=== PATIENT | female | born 1955 | race Caucasian/White ===

== ENCOUNTER 2019-12-19 19:45 | Emergency (ER) | payer MEDICARE, OTHER ==
[2019-12-19 19:51] VITALS: BP 151/75; PULSE 88; RESP 18; TEMP 98.9
[2019-12-19] MEDS ORDERED: SULFAMETHOX-TMP 800-160MG 1 EACH TAB PO STA (20:18)
[2019-12-19] MEDS ORDERED: cefTRIAXone 1,000 MG VIAL (IM USE) IM STA (20:18)
--- NOTE | 2019-12-19 20:36 | ED ---
General Adult HPI - General Chief complaint: Skin/Abscess/Foreign Body Stated complaint: Facial Swelling Time Seen by Provider: 12/19/19 19:50 Source: patient, RN notes reviewed, old records reviewed Mode of arrival: ambulatory Limitations: no limitations - History of Present Illness Initial comments: This is a 64-year-old female presents emergency Department complaining of an area of redness and tenderness on the left temporal region just lateral to the forehead. Patient states it's been there. Based and there is a slight area of fluctuance. Patient states she thinks it might be an abscess. Patient states the area of redness has gotten a little bit bigger and now she has some swelling of her lower eyelid. Patient denies any fever chills. Patient states it started as a pimple and she scratched and now it's gotten red and extremely tender to touch. Patient denies any headache patient denies any other area of redness or fluctuance. Patient denies any visual disturbance. Patient denies any ear pain. - Related Data Previous Rx's Medication Instructions Recorded Sulfamethox-Tmp 800-160Mg [Bactrim 1 each PO Q12HR #20 tab 12/19/19 DS 800-160 mg] Allergies Allergy/AdvReac Type Severity Reaction Status Date / Time No Known Allergies Allergy Verified 12/19/19 19:51 Review of Systems ROS Statement: Those systems with pertinent positive or pertinent negative responses have been documented in the HPI. ROS Other: All systems not noted in ROS Statement are negative. Past Medical History Past Medical History: Diabetes Mellitus, Hyperlipidemia History of Any Multi-Drug Resistant Organisms: None Reported Past Surgical History: Hysterectomy Additional Past Surgical History / Comment(s): cataracts, Past Psychological History: Anxiety Smoking Status: Current every day smoker Past Alcohol Use History: None Reported Past Drug Use History: None Reported General Exam - General Exam Comments Initial Comments: GENERAL Patient is well-developed and well-nourished. Patient is in mild distress. EYES Patient's pupils are equal and round. Extraocular motion is intact SKIN Patient has an area of erythema in the left anterior temporal region measuring about 2.5 center is a family is a scab at the bedside and there is some very subtly fluctuant and is very tender to palpation. Patient also has some swelling of the lower left eyelid but there is no erythema to the eyelid. NEURO The patient is alert and oriented 3 PYSCH Patient has normal interpersonal interactions. MUSCULOSKELETAL All 4 extremities have full range motion. Limitations: no limitations Course Vital Signs 12/19/19 19:47 Temperature 98.9 F Pulse Rate 88 Respiratory 18 Rate Blood Pressure 151/75 O2 Sat by Pulse 98 Oximetry Procedures - Incision & Drainage Consent Obtained: verbal consent Site: face I&D Cleaning Method: Betadine Needle Aspiration Performed?: Yes I&D Drainage Obtained: Pus Culture Obtained?: Yes Complications: pain Patient Tolerated Procedure: well Disposition Clinical Impression: Facial abscess Disposition: HOME SELF-CARE Condition: Good Instructions (If sedation given, give patient instructions): Abscess Incision and Drainage (ED) Prescriptions: Sulfamethox-Tmp 800-160Mg [Bactrim DS 800-160 mg] 1 each PO Q12HR #20 tab Is patient prescribed a controlled substance at d/c from ED?: No Referrals: Ally Licona MD [Primary Care Provider] - 12/20/19 Time of Disposition: 20:44
== END 2019-12-19 20:54 | disposition home or self-care (01) ==
LOC: EC 19:45
DX: L02.01 Cutaneous abscess of face (principal); H02.845 Edema of left lower eyelid; F17.200 Nicotine dependence, unspecified, uncomplicated
CPT/HCPCS: 87070; 87205; 87077; 87186; 99284; 10160; 96372; J0696

== ENCOUNTER 2019-12-21 10:13 | Inpatient (IN) | payer MEDICARE ==
[2019-12-21] MEDS ORDERED: VANCOMYCIN IV PER PHARMACY 1 EACH MISC MISCELLANE PRN (10:42)
--- NOTE | 2019-12-21 10:48 | ED ---
Eye Problem HPI <Doug Nava - Last Filed: 12/21/19 13:51> - General Source: patient, RN notes reviewed, old records reviewed Mode of arrival: ambulatory Limitations: no limitations <Moira Miles - Last Filed: 12/21/19 14:07> - General Chief complaint: Eye Problems Stated complaint: facial swelling Time Seen by Provider: 12/21/19 10:34 - History of Present Illness Initial comments: Patient is a 64-year-old female who presents emergency department today with worsening swelling over the right side her face extending into the left. Patient reports that she was diagnosed with facial cellulitis related to a hairline abscess. Patient presents today with her left eye completely swollen shut. Patient's previous wound culture from the abscess when she was seen 2 days ago was positive for presumptive MRSA. Patient was taking Bactrim and has had a total of 2 doses. Patient is diabetic. (Moira Miles) - Related Data Home Medications Medication Instructions Recorded Confirmed Aspirin EC [Ecotrin] 325 mg PO DAILY 12/21/19 12/21/19 Atorvastatin [Lipitor] 40 mg PO HS 12/21/19 12/21/19 Cetirizine HCl [Zyrtec] 10 mg PO DAILY 12/21/19 12/21/19 Citalopram Hydrobromide [CeleXA] 20 mg PO DAILY 12/21/19 12/21/19 Gabapentin [Neurontin] 300 mg PO BID 12/21/19 12/21/19 INSULIN ASPART (NovoLOG) [NovoLOG See Protocol SQ AC-TID 12/21/19 12/21/19 (formulary)] Insulin Glargine [Lantus] See Protocol SQ HS 12/21/19 12/21/19 Insulin Glargine,Hum.rec.anlog 30 units SQ HS 12/21/19 12/21/19 [Rosalina Tarango] Multivitamins, Thera [Multivitamin 1 tab PO DAILY 12/21/19 12/21/19 (formulary)] Naproxen [Naprosyn] 250 mg PO BID 12/21/19 12/21/19 Omeprazole [PriLOSEC] 40 mg PO DAILY 12/21/19 12/21/19 Sulfamethox-Tmp 800-160Mg [Bactrim 1 tab PO Q12HR 12/21/19 12/21/19 DS 800-160 mg] sitaGLIPtin PHOS/metFORMIN HCL 1 tab PO BID 12/21/19 12/21/19 [Janumet 50-1,000 mg Tablet] Allergies Allergy/AdvReac Type Severity Reaction Status Date / Time No Known Allergies Allergy Verified 12/21/19 10:22 Review of Systems ROS Other: All systems not noted in ROS Statement are negative. <Doug Nava - Last Filed: 12/21/19 13:51> ROS Other: All systems not noted in ROS Statement are negative. <Moira Miles - Last Filed: 12/21/19 14:07> ROS Statement: Those systems with pertinent positive or pertinent negative responses have been documented in the HPI. Past Medical History Past Medical History: Diabetes Mellitus, Hyperlipidemia History of Any Multi-Drug Resistant Organisms: MRSA Date of last positivie culture/infection: 12/19/19 MDRO Source:: FACE Past Surgical History: Hysterectomy Additional Past Surgical History / Comment(s): cataracts, Past Psychological History: Anxiety Smoking Status: Current every day smoker Past Alcohol Use History: None Reported Past Drug Use History: None Reported <Moira Miles - Last Filed: 12/21/19 14:07> General Exam Limitations: no limitations General appearance: alert, in no apparent distress Head exam: Present: atraumatic, normocephalic, normal inspection, other (Patient has a abscess over the left hairline. ) Eye exam: Present: PERRL, EOMI. Absent: normal appearance (patient left eye is swollen shut, erythematous and swollen eyelid. Patient eye has no erythema nad denies eye pain with EOM. ), scleral icterus, conjunctival injection, periorbital swelling ENT exam: Present: normal exam, normal oropharynx, mucous membranes moist Neck exam: Present: normal inspection. Absent: tenderness, meningismus, lymphadenopathy Respiratory exam: Present: normal lung sounds bilaterally. Absent: respiratory distress, wheezes, rales, rhonchi, stridor Cardiovascular Exam: Present: regular rate, normal rhythm, normal heart sounds. Absent: systolic murmur, diastolic murmur, rubs, gallop, clicks GI/Abdominal exam: Present: soft, normal bowel sounds. Absent: distended, tenderness, guarding, rebound, rigid Extremities exam: Present: normal inspection, full ROM, normal capillary refill. Absent: tenderness, pedal edema, joint swelling, calf tenderness Back exam: Present: normal inspection Neurological exam: Present: alert, oriented X3, CN II-XII intact Psychiatric exam: Present: normal affect, normal mood Skin exam: Present: warm, dry, intact, normal color. Absent: rash <Moira Miles - Last Filed: 12/21/19 14:07> - General Exam Comments Initial Comments: This is a 64 rolled female. Alert and oriented 3. Patient appears in no significant distress. (Moira Miles) Course Vital Signs 12/21/19 12/21/19 10:20 12:55 Temperature 98.2 F 99.2 F Pulse Rate 90 90 Respiratory 16 17 Rate Blood Pressure 126/73 124/72 O2 Sat by Pulse 96 97 Oximetry Medical Decision Making - Lab Data Result diagrams: 12/21/19 11:00 12/21/19 11:00 <Doug aNva - Last Filed: 12/21/19 13:51> - Lab Data Result diagrams: 12/21/19 11:00 12/21/19 11:00 - Radiology Data Radiology results: report reviewed <Moira Miles - Last Filed: 12/21/19 14:07> - Medical Decision Making 64-year-old female with left facial and periorbital cellulitis. No signs of an orbital cellulitis. Patient is afebrile and nontoxic appearing. She's been on 3 days of Bactrim without improvement, significant worsening has occurred over this course. She will be admitted for IV antibiotics. I did discuss case with Dr. Pierre who will admit. (Doug Nava) Patient is a 64-year-old female with left facial periorbital cellulitis. She's been on antibiotics, bactrim. She presents today with complete swelling of the left eye. She is a diabetic. CT shows no evidence of focal collection. Laboratory was reviewed and unremarkable. Her previous culture of an abscess over her hairline showed evidence of presumptive MRSA. Patient was started on Rocephin and vancomycin. Patient will be admitted at this time for IV antibiotics. I discussed the case with Dr. Multani. (Moira Miles) - Lab Data Lab Results 12/21/19 12/21/19 12/21/19 Range/Units 11:00 11:00 11:00 WBC 9.6 (3.8-10.6) k/uL RBC 4.25 (3.80-5.40) m/uL Hgb 12.1 (11.4-16.0) gm/dL Hct 36.2 (34.0-46.0) % MCV 85.2 (80.0-100.0) fL MCH 28.4 (25.0-35.0) pg MCHC 33.3 (31.0-37.0) g/dL RDW 12.6 (11.5-15.5) % Plt Count 227 (150-450) k/uL Neutrophils % 86 % Lymphocytes % 5 % Monocytes % 6 % Eosinophils % 1 % Basophils % 0 % Neutrophils # 8.3 H (1.3-7.7) k/uL Lymphocytes # 0.5 L (1.0-4.8) k/uL Monocytes # 0.6 (0-1.0) k/uL Eosinophils # 0.1 (0-0.7) k/uL Basophils # 0.0 (0-0.2) k/uL Sodium 133 L (137-145) mmol/L Potassium 4.6 (3.5-5.1) mmol/L Chloride 100 (98-107) mmol/L Carbon Dioxide 22 (22-30) mmol/L Anion Gap 11 mmol/L BUN 23 H (7-17) mg/dL Creatinine 1.04 (0.52-1.04) mg/dL Est GFR (CKD-EPI)AfAm 65 (>60 ml/min/1.73 sqM) Est GFR (CKD-EPI)NonAf 56 (>60 ml/min/1.73 sqM) Glucose 355 H (74-99) mg/dL Plasma Lactic Acid [place] 1.3 (0.7-2.0) mmol/L Calcium 8.9 (8.4-10.2) mg/dL Total Bilirubin 0.4 (0.2-1.3) mg/dL AST 27 (14-36) U/L ALT 19 (4-34) U/L Alkaline Phosphatase 82 (38-126) U/L Total Protein 6.7 (6.3-8.2) g/dL Albumin 3.8 (3.5-5.0) g/dL - Radiology Data CT shows preseptal left periorbital fat stranding parietal cellulitis. No focal abscess is seen. No extension to the post-septal intraconal or extraconal fat. Globes are symmetric. Straight he extends over the left temporal and parietal scalp soft tissues medially over the nasal bridge. (Moira Miles) Disposition <Doug Nava - Last Filed: 12/21/19 13:51> Is patient prescribed a controlled substance at d/c from ED?: No Time of Disposition: 14:07 <Moira Miles - Last Filed: 12/21/19 14:07> Clinical Impression: Failure of outpatient treatment, Periorbital cellulitis of left eye Disposition: HOME SELF-CARE Condition: Good Referrals: Ally Licona MD [Primary Care Provider] - 1-2 days
[2019-12-21] MEDS ORDERED: VANCOMYCIN 1,500 MG in SODIUM CHLORIDE 0.9% 250 ML IVPB ONE (11:00)
[2019-12-21 12:00] LABS: Basophils % (A) 0 %; Eosinophils # (A) 0.1 k/uL (0-0.7); Eosinophils % (A) 1 %; HCT 36.2 % (34.0-46.0); HGB 12.1 gm/dL (11.4-16.0); Lymphocytes # (A) 0.5 k/uL (1.0-4.8); Lymphocytes % (A) 5 %; MCH 28.4 pg (25.0-35.0); MCHC 33.3 g/dL (31.0-37.0); MCV 85.2 fL (80.0-100.0); Monocytes # (A) 0.6 k/uL (0-1.0); Monocytes % (A) 6 %; Neutrophils # (A) 8.3 k/uL (1.3-7.7); Neutrophils % (A) 86 %; Platelet Count 227 k/uL (150-450); RBC 4.25 m/uL (3.80-5.40); RDW 12.6 % (11.5-15.5); WBC 9.6 k/uL (3.8-10.6)
[2019-12-21] MEDS ORDERED: KETOROLAC 30 MG/ML 1 ML VIAL IVP STA (12:01)
[2019-12-21] MEDS ORDERED: methylPREDNISolone SOD SUCCI 125 MG/2 ML VIAL IV STA (12:01)
[2019-12-21 12:09] LABS: Albumin 3.8 g/dL (3.5-5.0); Calcium 8.9 mg/dL (8.4-10.2); Potassium 4.6 mmol/L (3.5-5.1); Total Bilirubin 0.4 mg/dL (0.2-1.3); Total Protein 6.7 g/dL (6.3-8.2)
--- NOTE | 2019-12-21 13:22 | CT ---
EXAMINATION TYPE: CT facial bones w con DATE OF EXAM: 12/21/2019 COMPARISON: None HISTORY: Left sided orbital and facial swelling x [address] DLP: 599.7 mGycm Automated exposure control for dose reduction was used. CONTRAST: CT scan of the facial bones is performed with IV Contrast, patient injected with 80 mL of Isovue 300. TECHNIQUE: CT scan of the sinuses is performed without contrast, axial images are obtained, coronal r eformatted images are also reviewed. FINDINGS: There is preseptal periorbital fat stranding on the left extending over the temporal bone a nd parietal bone soft tissues. This also extends medially along the medial canthus and medial nasal b ridge. The extraocular muscles are symmetric. No intraconal or extraconal fluid collection. No rim-en hancing measurable abscess seen. The globes are symmetric. Lenses atrophy is seen bilaterally. Superi or ophthalmic veins are symmetric and unremarkable. Evaluation of the brain is suboptimal given techn ique. Mild mucosal thickening of the left maxillary sinus incidental mucosal thickening in the ethmoi d sinuses. Remaining paranasal sinuses and mastoid air cells are well aerated. Facial bones appear in tact. . IMPRESSION: Preseptal left periorbital fat stranding compatible with cellulitis. No focal abscess is seen. No extent into the post septal intraconal or extraconal fat. Globes are symmetric. Fat strandin g extends over the left temporal and parietal scalp soft tissues and medially over the nasal bridge.
[2019-12-21] MEDS ORDERED: MORPHINE SULFATE 4 MG/ML SYRINGE IV PRN (14:08)
[2019-12-21] MEDS ORDERED: KETOROLAC 30 MG/ML 1 ML VIAL IVP PRN (14:08)
[2019-12-21] MEDS ORDERED: ONDANSETRON 4 MG/2 ML VIAL IVP PRN (14:08)
[2019-12-21] MEDS ORDERED: NALOXONE 0.4 MG/ML 1 ML VIAL IV PRN (14:08)
[2019-12-21] MEDS: SODIUM CHLORIDE 0.9% 1,000 ML IV SCH (15:42)
[2019-12-21 17:22] LABS: Glucose,Whole Blood 529 mg/dL (75-99)
[2019-12-21] MEDS ORDERED: INSULIN REGULAR BOLUS (FROM DRIP BAG) IV ONE (17:26)
[2019-12-21] MEDS ORDERED: INSULIN ASPART (NovoLOG) 100 UNIT/ML VIAL SQ SCH ×3 (17:30)
[2019-12-21 18:08] LABS: Glucose,Whole Blood 540 mg/dL (75-99)
[2019-12-21] MEDS: INSULIN REGULAR 100 UNIT in SODIUM CHLORIDE 0.9% 100 ML IV SCH ×2 (18:09→20:55)
[2019-12-21 18:48] LABS: Glucose,Whole Blood 580 mg/dL (75-99)
[2019-12-21 19:32] LABS: Glucose,Whole Blood 477 mg/dL (75-99)
[2019-12-21] MEDS ORDERED: HYDROcodone/APAP 5-325MG 1 EACH TAB PO PRN (19:33)
[2019-12-21] MEDS ORDERED: ALPRAZolam 0.25 MG TAB PO PRN (19:33)
[2019-12-21 20:03] LABS: Glucose,Whole Blood 434 mg/dL (75-99)
[2019-12-21 20:09] LABS: Glucose,Whole Blood 406 mg/dL (75-99)
[2019-12-21 20:37] LABS: Glucose,Whole Blood 440 mg/dL (75-99)
[2019-12-21] MEDS ORDERED: INSULIN DETEMIR (LEVEMIR) 100 UNIT/ML SYR SQ SCH (21:00)
[2019-12-21] MEDS ORDERED: NON FORMULARY DRUG (Sitagliptin Phos/Metformin Hcl [Janumet 50-1,000 Mg Tablet] 1 TAB) PO SCH (21:00)
[2019-12-21 21:13] LABS: Glucose,Whole Blood 384 mg/dL (75-99)
--- NOTE | 2019-12-21 21:35 | HP ---
HISTORY AND PHYSICAL DATE OF SERVICE: 12/21/2019 CHIEF COMPLAINTS: Left eye swelling and left forehead infection. HISTORY OF PRESENT ILLNESS: This 64-year-old woman with a past medical history of multiple medical problems including history of diabetes type 2, hypertension, hyperlipidemia, history of MRSA, anxiety, being followed by Dr. Licona in the outpatient setting was noted to have infection in the left forehead area. The patient had cellulitis. The patient also has apparently some hairline abscess. The patient has taken some antibiotics. Two days ago the patient had possible presumptive MRSA. The patient came to [facility] and was admitted for further evaluation and treatment. The culture taken on 12/19/2019 is reported as now confirmed MRSA. There is no history of fever, rigors or chills. No history of headache, loss of consciousness or seizures. Today, the patient's left face is also swollen with significant periorbital swelling on the left side with the patient could not open the eyelids by herself. There is no history of fever, rigors. No history of headache, loss of consciousness, seizures. No visual difficulties. After admission the blood sugars also found to be high. PAST MEDICAL HISTORY: History of MRSA of the left side of the neck with incision and drainage, diabetes type 2, hyperlipidemia, history of hysterectomy, history of anxiety. MEDICATIONS: Prior to admission: Home medications are: 1. Bactrim DS 1 p.o. b.i.d. 2. Janumet 1 p.o. b.i.d. 3. Naprosyn 250 mg p.o. b.i.d. 4. Toujeo 30 subcu q.h.s. 5. Celexa 20 mg p.o. daily. 6. Lipitor 40 mg q.h.s. 7. Prilosec 40 mg p.o. daily. 8. Multivitamins 1 p.o. daily. 9. Neurontin 300 mg p.o. b.i.d. 10.Zyrtec 10 mg p.o. daily. 11.Ecotrin 320 mg p.o. daily. 12.Lantus subcu q.h.s. 13.NovoLog a.c. t.i.d. ALLERGIES: None. FAMILY HISTORY: History of COPD, heart issues in the family. SOCIAL HISTORY: History of smoking continued ongoing. REVIEW OF SYSTEMS: ENT mentioned earlier Cardiovascular system: No angina. Respiratory: As mentioned earlier. GASTROINTESTINAL: As mentioned earlier. no dysuria or hematuria. Nervous System: No numbness or weakness. ALLERGY/IMMUNOLOGY: No asthma or hayfever. MUSCULOSKELETAL as mentioned earlier. HEMATOLOGY/ONCOLOGY: As mentioned earlier. CONSTITUTIONAL: As mentioned earlier. DERMATOLOGY: Negative. RHEUMATOLOGY: Negative. PSYCHIATRY: As mentioned earlier. PHYSICAL EXAMINATION: Alert and oriented times three. Pulse is 88. Blood pressure 131/60, respiration 18, temperature 97.4, pulse ox 94% on room air. HEENT: Conjunctivae normal. Oral mucosa moist. NECK is no jugular venous distention. No carotid bruit. No lymph node enlargement. Cardiovascular system: S1, S2 muffled. Respiration: Breath sounds diminished in the bases. No rhonchi. No crackles. ABDOMEN: Soft, nontender. No mass palpable. LEGS: No edema. No swelling. CENTRAL NERVOUS SYSTEM: Higher functions as mentioned earlier. Moves all four extremities. LYMPHATICS: No lymph nodes palpable in the neck, axillae or groin. SKIN: As mentioned earlier. JOINTS: No active deforming arthropathy. Examination of the face: Significant ulceration and scabbing of the left temporal area present with some contiguous redness, erythema, and as well as facial swelling of the left side of the face. Minimal facial periorbital swelling on the right eye also present. Left eye vision is normal after opening the eyelids. LABORATORY DATA: WBC 9.2, hemoglobin 12.1, sodium 133. Cultures noted. Sugars noted. Sugars are 355, 529, 514, 580. ASSESSMENT: 1. Acute right temporal cellulitis with facial cellulitis with significant periorbital swelling with MRSA. 2. Diabetes mellitus type 2, uncontrolled with no evidence of ketosis. 3. Hyponatremia. 4. Previous history of MRSA infection of the left neck. 5. Diabetes mellitus type 2. 6. Hyperlipidemia. 7. History of MRSA. 8. History of hysterectomy. 9. History of cataracts. 10.History of anxiety. 11.History of continued ongoing nicotine dependence. RECOMMENDATIONS AND DISCUSSION: This 64-year-old woman who presented with multiple complex medical issues, we will monitor the patient closely, continue the current medications, management and symptomatic treatment. We will initiate vancomycin and Zosyn. Infectious disease evaluation. Otherwise, insulin drip for blood sugars. Resume home medications. DVT prophylaxis. Prognosis guarded. Further recommendations to follow. A copy of this dictation being forwarded to Dr. Licona who is the primary physician. See orders for details. We will check hemoglobin A1c as well. MMODL / IJN: [id number] /
[2019-12-21 21:37] LABS: Glucose,Whole Blood 337 mg/dL (75-99)
[2019-12-21] MEDS: GABAPENTIN 300 MG CAP PO SCH (21:57)
[2019-12-21] MEDS: NICOTINE 14MG/24HR PATCH TRANSDERM SCH (21:58)
[2019-12-21] MEDS: metFORMIN 500 MG TAB PO SCH (21:58)
[2019-12-21] MEDS: HEPARIN SODIUM,PORCINE 5,000 UNIT/ML 1 ML VIAL SQ SCH (21:58)
[2019-12-21] MEDS: IBUPROFEN 400 MG TAB PO PRN (21:58)
[2019-12-21] MEDS: ATORVASTATIN 40 MG TAB PO SCH (21:58)
[2019-12-21 22:18] LABS: Glucose,Whole Blood 304 mg/dL (75-99)
[2019-12-21 23:01] LABS: Glucose,Whole Blood 265 mg/dL (75-99)
[2019-12-21 23:35] LABS: Glucose,Whole Blood 250 mg/dL (75-99)
[2019-12-22 00:07] LABS: Glucose,Whole Blood 230 mg/dL (75-99)
[2019-12-22] MEDS: TEMAZEPAM 15 MG CAP PO PRN ×2 (00:17→21:54)
[2019-12-22 01:24] LABS: Hemoglobin A1C 11.5 % (4.0-6.0)
[2019-12-22] MEDS: VANCOMYCIN 1,250 MG in SODIUM CHLORIDE 0.9% 250 ML IVPB SCH ×2 (02:16→17:13)
[2019-12-22 02:20] LABS: Glucose,Whole Blood 173 mg/dL (75-99)
[2019-12-22] MEDS: SODIUM CHLORIDE 0.9% 1,000 ML IV SCH ×3 (02:22→21:41)
[2019-12-22 04:22] LABS: Glucose,Whole Blood 198 mg/dL (75-99)
[2019-12-22] MEDS: INSULIN REGULAR 100 UNIT in SODIUM CHLORIDE 0.9% 100 ML IV SCH ×2 (04:24→21:53)
[2019-12-22 06:08] LABS: Glucose,Whole Blood 230 mg/dL (75-99)
[2019-12-22 07:19] LABS: Basophils % (A) 0 %; Eosinophils % (A) 0 %; HCT 31.3 % (34.0-46.0); HGB 10.7 gm/dL (11.4-16.0); Lymphocytes # (A) 0.7 k/uL (1.0-4.8); Lymphocytes % (A) 6 %; MCH 29.2 pg (25.0-35.0); MCHC 34.1 g/dL (31.0-37.0); MCV 85.6 fL (80.0-100.0); Monocytes # (A) 0.5 k/uL (0-1.0); Monocytes % (A) 5 %; Neutrophils # (A) 8.9 k/uL (1.3-7.7); Neutrophils % (A) 87 %; Platelet Count 256 k/uL (150-450); RBC 3.66 m/uL (3.80-5.40); RDW 12.6 % (11.5-15.5); WBC 10.2 k/uL (3.8-10.6)
[2019-12-22 07:41] LABS: Calcium 8.5 mg/dL (8.4-10.2); Potassium 4.8 mmol/L (3.5-5.1)
[2019-12-22 08:05] LABS: Glucose,Whole Blood 285 mg/dL (75-99)
[2019-12-22] MEDS: NICOTINE 14MG/24HR PATCH TRANSDERM SCH (08:10)
--- NOTE | 2019-12-22 08:43 | P.CONS ---
History of Present Illness - Reason for Consult Consult date: 12/21/19 LEFT PERIORBITAL CELLULITIS Requesting physician: Teddy Corado - Chief Complaint left periorbital area pain and swelling x 2 days - History of Present Illness Patient is a 64-year-old female presenting to the ER at [facility] with a chief complaints of left temporal and periorbital swelling and redness that has been going on for the last few days apparently started as a folliculitis at the left temporal area that has slowly progressed to involve the left periorbital area patient be diagnosed with cellulitis and has been treated with oral Bactrim DS with the patient has taken 2 doses however the patient did have swelling and redness to the point that the left eye is swollen shut the patient denies having any pain on movement of the eyeball patient describing the pain to the left side of the face area to be throbbing intensity about 5-10 and no radiation there is no purulent drainage did have some chills denies high- grade fever though on arrival to the ER patient has been afebrile white count was normal patient did have a CT of the face which did show preseptal left periorbital fat stranding compatible cellulitis no abscess is seen patient was started on vancomycin admitted to hospital infectious was consulted for further recommendation regarding antibiotic therapy. Review of Systems Positive point has been mentioned in HPI rest of the systems are negative Past Medical History Past Medical History: Diabetes Mellitus, Hyperlipidemia History of Any Multi-Drug Resistant Organisms: MRSA Year Discovered:: 12/19/19 MDRO Source:: FACE Past Surgical History: Hysterectomy Additional Past Surgical History / Comment(s): cataracts, Past Psychological History: Anxiety Smoking Status: Current every day smoker Past Alcohol Use History: None Reported Past Drug Use History: None Reported - Past Family History Father Family Medical History: COPD Mother Additional Family Medical History / Comment(s): Heart issues Medications and Allergies Home Medications Medication Instructions Recorded Confirmed Type Aspirin EC [Ecotrin] 325 mg PO DAILY 12/21/19 12/21/19 History Atorvastatin [Lipitor] 40 mg PO HS 12/21/19 12/21/19 History Cetirizine HCl [Zyrtec] 10 mg PO DAILY 12/21/19 12/21/19 History Citalopram Hydrobromide [CeleXA] 20 mg PO DAILY 12/21/19 12/21/19 History Gabapentin [Neurontin] 300 mg PO BID 12/21/19 12/21/19 History INSULIN ASPART (NovoLOG) [NovoLOG See Protocol SQ AC-TID 12/21/19 12/21/19 History (formulary)] Insulin Glargine [Lantus] See Protocol SQ HS 12/21/19 12/21/19 History Insulin Glargine,Hum.rec.anlog 30 units SQ HS 12/21/19 12/21/19 History [Toujeo Solostar] Multivitamins, Thera [Multivitamin 1 tab PO DAILY 12/21/19 12/21/19 History (formulary)] Naproxen [Naprosyn] 250 mg PO BID 12/21/19 12/21/19 History Omeprazole [PriLOSEC] 40 mg PO DAILY 12/21/19 12/21/19 History Sulfamethox-Tmp 800-160Mg [Bactrim 1 tab PO Q12HR 12/21/19 12/21/19 History DS 800-160 mg] sitaGLIPtin PHOS/metFORMIN HCL 1 tab PO BID 12/21/19 12/21/19 History [Janumet 50-1,000 mg Tablet] Allergies Allergy/AdvReac Type Severity Reaction Status Date / Time No Known Allergies Allergy Verified 12/21/19 10:22 Physical Exam Vitals: Vital Signs Temp Pulse Resp BP Pulse Ox 12/21/19 16:26 91 18 126/78 98 12/21/19 12:55 99.2 F 90 17 124/72 97 12/21/19 10:20 98.2 F 90 16 126/73 96 Intake and Output 12/21/19 12/21/19 12/21/19 06:59 14:59 22:59 Other: Weight 71.668 kg GENERAL DESCRIPTION: Elderly female lying in bed, no distress. No tachypnea or accessory muscle of respiration use. HEENT: Shows Pallor , no scleral icterus. Oral mucous membrane is dry. NECK: Trachea central, no thyromegaly. LUNGS: Unlabored breathing. Clear to auscultation anteriorly. No wheeze or crackle. HEART: S1, S2, regular rate and rhythm. ABDOMEN: Soft, no tenderness , guarding or rigidity EXTREMITIES: No edema of feet. SKIN: No rash, no masses palpable. Left periorbital swelling with evidence of folliculitis at the left temporal area that is streaking down to the left periorbital area there is no fluctuation or any drainage NEUROLOGICAL: The patient is awake, alert, oriented x3, mood and affect normal. Results CBC & Chem 7: 12/22/19 06:56 12/22/19 06:56 Labs: Abnormal Lab Results - Last 24 Hours (Table) 12/21/19 12/21/19 Range/Units 11:00 11:00 Neutrophils # 8.3 H (1.3-7.7) k/uL Lymphocytes # 0.5 L (1.0-4.8) k/uL Sodium 133 L (137-145) mmol/L BUN 23 H (7-17) mg/dL Glucose 355 H (74-99) mg/dL Assessment and Plan Assessment: patient with a left periorbital cellulitis that started as a folliculitis at the temporal area in this patient who did have a previous history of MRSA infection will need to cover for MRSA to the likely pathogen for this periorbital cellulitis clinically no features suggestive of orbital cellulitis and there is no evidence of any drainable abscess on the CT (1) Facial abscess Current Visit: Yes Status: Acute Code(s): L02.01 - CUTANEOUS ABSCESS OF FACE SNOMED Code(s): 522005818 (2) Periorbital cellulitis of left eye Current Visit: Yes Status: Acute Code(s): L03.213 - PERIORBITAL CELLULITIS SNOMED Code(s): 101482982 Plan: 1-vancomycin pharmacy to dose her with a target trough of 15 while watching her kidney function and Vanco trough closely. 2-jemma the area of the redness 3-cultures to be obtained if the area started to drain We will follow on clinical condition and cultures to further adjust medication if needed Thank you for this consultation we will follow the patient along with you Time with Patient: Greater than 30
[2019-12-22] MEDS: metFORMIN 500 MG TAB PO SCH ×2 (08:54→20:02)
[2019-12-22] MEDS: HEPARIN SODIUM,PORCINE 5,000 UNIT/ML 1 ML VIAL SQ SCH ×2 (08:54→20:02)
[2019-12-22] MEDS: LORATADINE 10 MG TAB PO SCH (08:54)
[2019-12-22] MEDS: PANTOPRAZOLE 40 MG/10 ML VIAL IV SCH (08:54)
[2019-12-22] MEDS: GABAPENTIN 300 MG CAP PO SCH ×2 (08:54→20:02)
[2019-12-22] MEDS: CITALOPRAM HYDROBROMIDE 20 MG TAB PO SCH (08:54)
[2019-12-22] MEDS: ASPIRIN 325 MG TAB PO SCH (08:55)
[2019-12-22] MEDS: MULTIVITAMINS, THERA 1 EACH TAB PO SCH (08:55)
[2019-12-22] MEDS ORDERED: NON FORMULARY DRUG (Omeprazole 40 MG) PO SCH (09:00)
[2019-12-22] MEDS ORDERED: LINAGLIPTIN 5 MG TABLET PO SCH (09:00)
[2019-12-22 10:03] LABS: Glucose,Whole Blood 350 mg/dL (75-99)
[2019-12-22 11:59] LABS: Glucose,Whole Blood 184 mg/dL (75-99)
[2019-12-22 12:46] VITALS: BMI 30.8
[2019-12-22 14:15] LABS: Glucose,Whole Blood 159 mg/dL (75-99)
[2019-12-22] MEDS: ACETAMINOPHEN TAB 325 MG TAB PO PRN (14:32)
[2019-12-22 15:40] LABS: Appearance,Urine Clear (Clear); Bilirubin,Urine Negative (Negative); Blood,Urine Negative (Negative); Color,Urine Yellow; Glucose,Urine (UA) 4+ (Negative); Ketones,Urine Negative (Negative); Leukocyte Esterase,Urine Negative (Negative); Nitrite,Urine Negative (Negative); PH, Urine 5.5 (5.0-8.0); Protein,Urine Negative (Negative); Specific Gravity,Urine 1.021 (1.001-1.035); Urobilinogen,Urine <2.0 mg/dL (<2.0)
[2019-12-22 16:03] LABS: Glucose,Whole Blood 191 mg/dL (75-99)
[2019-12-22 18:05] LABS: Glucose,Whole Blood 249 mg/dL (75-99)
[2019-12-22 19:57] LABS: Glucose,Whole Blood 259 mg/dL (75-99)
[2019-12-22] MEDS: ATORVASTATIN 40 MG TAB PO SCH (20:02)
--- NOTE | 2019-12-22 20:04 | PN ---
PROGRESS NOTE DATE OF SERVICE: 12/22/2019 This 64-year-old woman was admitted with acute left temporal cellulitis and possible abscess with MRSA, bilateral, left more than the right. The patient is on IV vancomycin. Infectious Disease is following the patient closely. Cultures are negative so far. PHYSICAL EXAMINATION: Alert and oriented x3. The pulse is 66, blood pressure 124/60, respiration 18, temperature 99 degrees, pulse ox 94% on room air. HEENT: Conjunctivae normal. Periorbital puffiness, left more than the right. Left temporal cellulitis and induration present. NECK: No jugular venous distention. No lymph node enlargement. CARDIOVASCULAR: S1, S2. RESPIRATORY: Diminished breath sounds at the bases. Bilateral scattered rhonchi and crackles. ABDOMEN: Soft, nontender. LEGS: No edema, no swelling. NERVOUS SYSTEM: No focal deficits. LABS: WBC 10.2. Sodium 134. Accu-Cheks is 191. ASSESSMENT: 1. Acute right temporal cellulitis with facial cellulitis, significant periorbital swelling with possible MRSA. 2. Diabetes type 2, uncontrolled with no evidence of ketosis. 3. Hyponatremia. 4. Previous history of MRSA infection of the left neck. 5. Hyperlipidemia. 6. History of MRSA. 7. History of hysterectomy. 8. History of cataracts. 9. History of anxiety. 10.History of remote nicotine dependence. RECOMMENDATIONS AND DISCUSSION: Recommend to continue current management, continue symptomatic treatment. Otherwise, at this time I recommend taper off the insulin drip at this time. Otherwise, continue to monitor. Guarded prognosis because of multiple complex medical issues and further recommendations to follow. See orders for details. MMODL / IJN: [id number] /
[2019-12-22 21:53] LABS: Glucose,Whole Blood 213 mg/dL (75-99)
[2019-12-22] MEDS: IBUPROFEN 400 MG TAB PO PRN (21:54)
[2019-12-22 23:59] LABS: Glucose,Whole Blood 168 mg/dL (75-99)
[2019-12-23 03:23] LABS: Glucose,Whole Blood 206 mg/dL (75-99)
[2019-12-23] MEDS: SODIUM CHLORIDE 0.9% 1,000 ML IV SCH ×2 (04:58→17:31)
[2019-12-23 05:00] LABS: Glucose,Whole Blood 215 mg/dL (75-99)
[2019-12-23 07:07] LABS: Glucose,Whole Blood 231 mg/dL (75-99)
[2019-12-23 07:13] LABS: Basophils % (A) 0 %; Eosinophils # (A) 0.1 k/uL (0-0.7); Eosinophils % (A) 1 %; HCT 31.7 % (34.0-46.0); HGB 10.5 gm/dL (11.4-16.0); Lymphocytes # (A) 1.8 k/uL (1.0-4.8); Lymphocytes % (A) 26 %; MCH 29.1 pg (25.0-35.0); MCHC 33.2 g/dL (31.0-37.0); MCV 87.5 fL (80.0-100.0); Monocytes # (A) 0.4 k/uL (0-1.0); Monocytes % (A) 6 %; Neutrophils # (A) 4.4 k/uL (1.3-7.7); Neutrophils % (A) 64 %; Platelet Count 258 k/uL (150-450); RBC 3.63 m/uL (3.80-5.40); RDW 12.9 % (11.5-15.5)
[2019-12-23 07:34] LABS: Calcium 8.2 mg/dL (8.4-10.2); Potassium 4.7 mmol/L (3.5-5.1)
[2019-12-23] MEDS: GABAPENTIN 300 MG CAP PO SCH ×2 (07:44→20:33)
[2019-12-23] MEDS: CITALOPRAM HYDROBROMIDE 20 MG TAB PO SCH (07:44)
[2019-12-23] MEDS: metFORMIN 500 MG TAB PO SCH ×2 (07:44→20:33)
[2019-12-23] MEDS: LORATADINE 10 MG TAB PO SCH (07:44)
[2019-12-23] MEDS: MULTIVITAMINS, THERA 1 EACH TAB PO SCH (07:44)
[2019-12-23] MEDS: PANTOPRAZOLE 40 MG/10 ML VIAL IV SCH (07:45)
[2019-12-23] MEDS: NICOTINE 14MG/24HR PATCH TRANSDERM SCH (07:45)
[2019-12-23] MEDS: ASPIRIN 325 MG TAB PO SCH (07:45)
[2019-12-23] MEDS: HEPARIN SODIUM,PORCINE 5,000 UNIT/ML 1 ML VIAL SQ SCH ×2 (07:45→20:33)
[2019-12-23] MEDS: VANCOMYCIN 1,250 MG in SODIUM CHLORIDE 0.9% 250 ML IVPB SCH ×2 (07:47→20:38)
--- NOTE | 2019-12-23 09:09 | PN ---
PROGRESS NOTE DATE OF SERVICE: 12/22/2019 REASON FOR FOLLOWUP: Left periorbital and temporal area cellulitis. INTERVAL HISTORY: The patient is currently afebrile, has been breathing comfortably. The left periorbital and temporal area swelling and redness has decreased. She was able to open her eyes. She denies any chest pain, shortness of breath or cough. No abdominal pain, no diarrhea. PHYSICAL EXAMINATION: Blood pressure is 114/57 with a pulse of 72, temperature 98.3. She is 96% on room air. General description is a middle-aged female lying in bed in no distress. HEENT examination: Left orbital swelling and redness has decreased. Lungs: Unlabored breathing, clear to auscultation anteriorly. Heart S1, S2. Regular rate and rhythm. Abdomen soft, no tenderness. LABS: No new labs have been obtained today. DIAGNOSTIC IMPRESSION AND PLAN: Patient with left periorbital cellulitis, started as a folliculitis of the left temporal area and this patient currently covered with vancomycin as she has shown some clinical improvement, to continue and we will monitor her clinical course closely. Continue supportive care. MMODL / IJN: [id number] /
[2019-12-23 09:28] LABS: Glucose,Whole Blood 222 mg/dL (75-99)
[2019-12-23 11:25] LABS: Glucose,Whole Blood 99 mg/dL (75-99)
[2019-12-23 12:42] LABS: Glucose,Whole Blood 175 mg/dL (75-99)
[2019-12-23] MEDS ORDERED: INSULIN DETEMIR (LEVEMIR) 100 UNIT/ML SYR SQ ONE (16:00)
[2019-12-23 17:09] LABS: Glucose,Whole Blood 319 mg/dL (75-99)
[2019-12-23] MEDS: INSULIN ASPART (NovoLOG) 100 UNIT/ML VIAL SQ SCH ×2 (17:30→20:33)
[2019-12-23] MEDS: ACETAMINOPHEN TAB 325 MG TAB PO PRN (17:31)
[2019-12-23 20:28] LABS: Glucose,Whole Blood 255 mg/dL (75-99)
[2019-12-23] MEDS: ATORVASTATIN 40 MG TAB PO SCH (20:33)
--- NOTE | 2019-12-23 20:36 | PN ---
PROGRESS NOTE DATE OF SERVICE: 12/17/2019 This 64-year-old woman was admitted with left temporal cellulitis as well as significant periorbital cellulitis, is being closely monitored. Patient is on IV vancomycin. Dr. Hall is following the patient closely. The patient had some clinical improvement. No chest pain. No palpitations. No fever. Some minimal fluctuation noted in the left temporal area. EXAM: Alert and oriented x3. Pulse 67, blood pressure 124/64, respiration 18, temperature 98.9, pulse ox 97% on room air. HEENT: Conjunctivae normal. Oral mucosa moist. NECK: No jugular venous distention. No lymph node enlargement. CARDIOVASCULAR: S1, S2. RESPIRATORY: Diminished breath sounds at the bases. No rhonchi, no crackles. ABDOMEN: Soft, nontender. LEGS: No edema, no swelling. NERVOUS SYSTEM: No focal deficits. Examination of the left temporal area: Minimal swelling and induration present. Facial puffiness also present. LABS: Accu-Cheks 99, 175 and 319. Other labs are noted. ASSESSMENT: 1. Acute left temporal cellulitis and facial cellulitis, significant periorbital swelling and possible MRSA. 2. Diabetes mellitus type 2, uncontrolled with hyperglycemia with no evidence of ketosis. 3. Hyponatremia. 4. Previous history of MRSA infection of the left neck. 5. Hyperlipidemia. 6. History of MRSA. 7. History of hysterectomy. 8. History of cataracts. 9. History of anxiety. 10.Remote history of nicotine dependence. RECOMMENDATIONS AND DISCUSSION: Recommend to continue current medication, continue to monitor, symptomatic treatment. Otherwise, most recent cultures are negative. Wound culture done outpatient shows MRSA. Guarded prognosis. Further recommendations to follow. Closely follow with Infectious Disease. MMODL / IJN: [id number] /
[2019-12-24] MEDS: IBUPROFEN 400 MG TAB PO PRN ×2 (03:01→21:22)
[2019-12-24] MEDS: SODIUM CHLORIDE 0.9% 1,000 ML IV SCH ×3 (05:21→22:47)
[2019-12-24 07:04] LABS: Glucose,Whole Blood 252 mg/dL (75-99)
--- NOTE | 2019-12-24 07:16 | PN ---
PROGRESS NOTE DATE OF SERVICE: 12/23/2019 REASON FOR FOLLOWUP: Left periorbital cellulitis. INTERVAL HISTORY: The patient is currently afebrile. The patient left temporal and periorbital swelling and redness has improved. Denies having any chest pain, shortness of breath, cough. No abdominal pain, no diarrhea. PHYSICAL EXAMINATION: Blood pressure 134/75 with a pulse of 77, temperature 98.6, she is 97% on room air. General description is an elderly female lying in bed in no distress. RESPIRATORY SYSTEM: Unlabored breathing, clear to auscultation anteriorly. HEART: S1, S2. Regular rate and rhythm. ABDOMEN: Soft, no tenderness. Left periorbital swelling and redness have improved. LABS: White count normal at 10.0: Creatinine 0.98. DIAGNOSTIC IMPRESSION AND PLAN: Patient with left periorbital cellulitis in this patient who did have a folliculitis of the temporal area. Patient seemed to have shown clinical improvement on vancomycin finishing therapy with oral Bactrim DS. Continue supportive care. MMODL / IJN: [id number] /
[2019-12-24] MEDS ORDERED: VANCOMYCIN TROUGH DUE 1 EACH MISC MISCELLANE ONE (08:00)
[2019-12-24] MEDS: INSULIN ASPART (NovoLOG) 100 UNIT/ML VIAL SQ SCH ×4 (08:44→21:18)
[2019-12-24] MEDS: INSULIN DETEMIR (LEVEMIR) 100 UNIT/ML SYR SQ SCH (08:44)
[2019-12-24] MEDS: MULTIVITAMINS, THERA 1 EACH TAB PO SCH (08:45)
[2019-12-24] MEDS: PANTOPRAZOLE 40 MG/10 ML VIAL IV SCH (08:45)
[2019-12-24] MEDS: HEPARIN SODIUM,PORCINE 5,000 UNIT/ML 1 ML VIAL SQ SCH ×2 (08:45→21:18)
[2019-12-24] MEDS: LORATADINE 10 MG TAB PO SCH (08:45)
[2019-12-24] MEDS: CITALOPRAM HYDROBROMIDE 20 MG TAB PO SCH (08:45)
[2019-12-24] MEDS: ASPIRIN 325 MG TAB PO SCH (08:45)
[2019-12-24] MEDS: GABAPENTIN 300 MG CAP PO SCH ×2 (08:45→21:17)
[2019-12-24] MEDS: metFORMIN 500 MG TAB PO SCH ×2 (08:45→21:17)
[2019-12-24] MEDS: NICOTINE 14MG/24HR PATCH TRANSDERM SCH (08:46)
[2019-12-24 08:53] LABS: Basophils % (A) 1 %; Eosinophils # (A) 0.1 k/uL (0-0.7); Eosinophils % (A) 2 %; HCT 32.4 % (34.0-46.0); HGB 10.8 gm/dL (11.4-16.0); Lymphocytes # (A) 1.4 k/uL (1.0-4.8); Lymphocytes % (A) 28 %; MCHC 33.3 g/dL (31.0-37.0); MCV 87.1 fL (80.0-100.0); Mean Platelet Volume 8.4; Monocytes # (A) 0.4 k/uL (0-1.0); Monocytes % (A) 8 %; Neutrophils # (A) 2.9 k/uL (1.3-7.7); Neutrophils % (A) 58 %; Platelet Count 242 k/uL (150-450); RBC 3.72 m/uL (3.80-5.40); RDW 12.5 % (11.5-15.5)
[2019-12-24 09:21] LABS: African American GFR (CKD) >90 (>60 ml/min/1.73 sqM); Anion Gap 6 mmol/L; Blood Urea Nitrogen 19 mg/dL (7-17); Calcium 8.5 mg/dL (8.4-10.2); Carbon Dioxide 24 mmol/L (22-30); Chloride 105 mmol/L (98-107); Glucose 239 mg/dL (74-99); Non-African American GFR(CKD) >90 (>60 ml/min/1.73 sqM); Sodium 135 mmol/L (137-145)
[2019-12-24] MEDS: VANCOMYCIN 1,250 MG in SODIUM CHLORIDE 0.9% 250 ML IVPB SCH (10:07)
[2019-12-24 12:03] LABS: Glucose,Whole Blood 185 mg/dL (75-99)
--- NOTE | 2019-12-24 13:27 | P.GSCN ---
History of Present Illness Consult date: 12/24/19 Reason for Consult: facial abscess Requesting physician: Latha Mijares History of present illness: CHIEF COMPLAINT: facial abscess HISTORY OF PRESENT ILLNESS: 64 year old female admitted to the hospital secondary to facial cellulitis. General surgery was consulted for further evaluation. PAST MEDICAL HISTORY: See list. PAST SURGICAL HISTORY: See list. SOCIAL HISTORY: No illicit drug use. REVIEW OF SYSTEMS: CONSTITUTIONAL: Denies fever or chills. HEENT: Denies blurred vision, vision changes, or eye pain. Denies hemoptysis CARDIOVASCULAR: Denies chest pain or pressure. RESPIRATORY: No shortness of breath. GASTROINTESTINAL: Refer to [facility] for pertinent findings HEMATOLOGIC: Denies bleeding disorders. GENITOURINARY: Denies any blood in urine. SKIN: Denies pruitis. Denies rash. Reports erythema to left eye and temporal region. PHYSICAL EXAM: VITAL SIGNS: Reviewed. GENERAL: Well-developed in no acute distress. HEENT: No sclera icterus. Extraocular movements grossly intact. Moist buccal mucosa. Head is normocephalic. ABDOMEN: Soft. Nondistended. Nontender. NEUROLOGIC: Alert and oriented. Cranial nerves II through XII grossly intact. SKIN: Erythema noted to left eye and temporal region. No drainage noted. LABORATORY DATA: WBC 5.0. Hemoglobin 10.8. Platelet count 242. IMAGING: CT face: Preseptal left periorbital fat stranding compatible with cellulitis. No focal abscesses seen. No extent and a post-septal intraconal or extraconal fat. Globes are symmetric. Fat stranding extends over the left temporal and parietal scalp soft tissues and medially over the nasal bridge. ASSESSMENT: 1. Left facial cellulitis PLAN: -Continue IV antibiotics -No surgical intervention required Thank you for this consultation. Nurse practitioner note has been reviewed by physician. Signing provider agrees with the documented findings, assessment, and plan of care. Past Medical History Past Medical History: Diabetes Mellitus, Hyperlipidemia History of Any Multi-Drug Resistant Organisms: MRSA Year Discovered:: 12/19/19 MDRO Source:: FACE Past Surgical History: Hysterectomy Additional Past Surgical History / Comment(s): cataracts, Past Anesthesia/Blood Transfusion Reactions: No Reported Reaction Past Psychological History: Anxiety Smoking Status: Current every day smoker Past Alcohol Use History: None Reported Past Drug Use History: None Reported - Past Family History Father Family Medical History: COPD Mother Additional Family Medical History / Comment(s): Heart issues Medications and Allergies Home Medications Medication Instructions Recorded Confirmed Type Aspirin EC [Ecotrin] 325 mg PO DAILY 12/21/19 12/21/19 History Atorvastatin [Lipitor] 40 mg PO HS 12/21/19 12/21/19 History Cetirizine HCl [Zyrtec] 10 mg PO DAILY 12/21/19 12/21/19 History Citalopram Hydrobromide [CeleXA] 20 mg PO DAILY 12/21/19 12/21/19 History Gabapentin [Neurontin] 300 mg PO BID 12/21/19 12/21/19 History INSULIN ASPART (NovoLOG) [NovoLOG See Protocol SQ AC-TID 12/21/19 12/21/19 History (formulary)] Insulin Glargine [Lantus] See Protocol SQ HS 12/21/19 12/21/19 History Insulin Glargine,Hum.rec.anlog 30 units SQ HS 12/21/19 12/21/19 History [Toujeo Solostar] Multivitamins, Thera [Multivitamin 1 tab PO DAILY 12/21/19 12/21/19 History (formulary)] Naproxen [Naprosyn] 250 mg PO BID 12/21/19 12/21/19 History Omeprazole [PriLOSEC] 40 mg PO DAILY 12/21/19 12/21/19 History Sulfamethox-Tmp 800-160Mg [Bactrim 1 tab PO Q12HR 12/21/19 12/21/19 History DS 800-160 mg] sitaGLIPtin PHOS/metFORMIN HCL 1 tab PO BID 12/21/19 12/21/19 History [Janumet 50-1,000 mg Tablet] Allergies Allergy/AdvReac Type Severity Reaction Status Date / Time No Known Allergies Allergy Verified 12/21/19 10:22 Surgical - Exam Vital Signs Temp Pulse Resp BP Pulse Ox 98.2 F 90 16 126/73 96 12/21/19 10:20 12/21/19 10:20 12/21/19 10:20 12/21/19 10:20 12/21/19 10:20 Results - Labs 12/24/19 08:23 12/24/19 08:23 Abnormal Lab Results - Last 24 Hours (Table) 12/23/19 12/23/19 12/24/19 Range/Units 17:08 20:27 07:03 RBC (3.80-5.40) m/uL Hgb (11.4-16.0) gm/dL Hct (34.0-46.0) % Sodium (137-145) mmol/L BUN (7-17) mg/dL Glucose (74-99) mg/dL POC Glucose (mg/dL) 319 H 255 H 252 H (75-99) mg/dL 12/24/19 12/24/19 12/24/19 Range/Units 08:23 08:23 12:02 RBC 3.72 L (3.80-5.40) m/uL Hgb 10.8 L (11.4-16.0) gm/dL Hct 32.4 L (34.0-46.0) % Sodium 135 L (137-145) mmol/L BUN 19 H (7-17) mg/dL Glucose 239 H (74-99) mg/dL POC Glucose (mg/dL) 185 H (75-99) mg/dL Microbiology - Last 24 Hours (Table) 12/21/19 11:00 Blood Culture - Preliminary Blood No Growth after 72 hours 12/23/19 18:30 Stool Culture - Preliminary Stool Diabetes panel 12/24/19 Range/Units 08:23 Sodium 135 L (137-145) mmol/L Potassium 5.0 (3.5-5.1) mmol/L Chloride 105 (98-107) mmol/L Carbon Dioxide 24 (22-30) mmol/L BUN 19 H (7-17) mg/dL Creatinine 0.70 (0.52-1.04) mg/dL Glucose 239 H (74-99) mg/dL Calcium 8.5 (8.4-10.2) mg/dL Calcium panel 12/24/19 Range/Units 08:23 Calcium 8.5 (8.4-10.2) mg/dL Pituitary panel 12/24/19 Range/Units 08:23 Sodium 135 L (137-145) mmol/L Potassium 5.0 (3.5-5.1) mmol/L Chloride 105 (98-107) mmol/L Carbon Dioxide 24 (22-30) mmol/L BUN 19 H (7-17) mg/dL Creatinine 0.70 (0.52-1.04) mg/dL Glucose 239 H (74-99) mg/dL Calcium 8.5 (8.4-10.2) mg/dL Adrenal panel 12/24/19 Range/Units 08:23 Sodium 135 L (137-145) mmol/L Potassium 5.0 (3.5-5.1) mmol/L Chloride 105 (98-107) mmol/L Carbon Dioxide 24 (22-30) mmol/L BUN 19 H (7-17) mg/dL Creatinine 0.70 (0.52-1.04) mg/dL Glucose 239 H (74-99) mg/dL Calcium 8.5 (8.4-10.2) mg/dL
[2019-12-24 17:12] LABS: Glucose,Whole Blood 229 mg/dL (75-99)
[2019-12-24 20:46] LABS: Glucose,Whole Blood 332 mg/dL (75-99)
[2019-12-24] MEDS: ATORVASTATIN 40 MG TAB PO SCH (21:17)
--- NOTE | 2019-12-24 21:22 | PN ---
PROGRESS NOTE DATE OF SERVICE: 12/24/2019 This 64-year-old woman was admitted with left temporal infection, also has some minimal fluctuation in the temporal area. The patient is on IV antibiotics. MRSA has grown from the culture previously. Surgery has seen the patient and recommend to continue the antibiotics. No surgical intervention. No chest pain, no palpitations, no fever. EXAM: Alert and oriented x3. Pulse 67, blood pressure 130/70, respiration 17, temperature 98.2, pulse ox 98% on room air. HEENT: Conjunctivae normal. Oral mucosa moist. NECK: No jugular venous distention. No lymph node enlargement. CARDIOVASCULAR: S1, S2. RESPIRATORY: Diminished breath sounds at the bases. No rhonchi, no crackles. ABDOMEN: Soft, nontender. LEGS: No edema, no swelling. NERVOUS SYSTEM: No focal deficits. Examination of the left temporal area: Minimal fluctuation, tenderness, cellulitis. Periorbital cellulitis also. LABS: WBC 5, hemoglobin 10.8, sodium 135. ASSESSMENT: 1. Acute left temporal cellulitis with facial cellulitis with significant periorbital swelling and possible MRSA. 2. Diabetes mellitus type 2 uncontrolled with hyperglycemia with no evidence of ketosis. 3. Hyponatremia. 4. Previous history of MRSA infection in the left neck. 5. Hyperlipidemia. 6. History of MRSA. 7. History hysterectomy. 8. History of cataracts. 9. History of anxiety. 10.Remote history of nicotine dependence. RECOMMENDATIONS AND DISCUSSION: Recommend to continue current management, symptomatic treatment. Otherwise, continue the antibiotics. Closely follow with Dr. Taylor. Further recommendations to follow. MMODL / IJN: [id number] /
[2019-12-24] MEDS: VANCOMYCIN 1,500 MG in SODIUM CHLORIDE 0.9% 250 ML IVPB SCH (22:46)
[2019-12-25 02:24] VITALS: RESP 16
[2019-12-25 04:09] VITALS: TEMP 98.2
[2019-12-25 07:00] LABS: Glucose,Whole Blood 276 mg/dL (75-99)
[2019-12-25] MEDS ORDERED: PANTOPRAZOLE 40 MG TABLET PO SCH (07:30)
[2019-12-25] MEDS: INSULIN DETEMIR (LEVEMIR) 100 UNIT/ML SYR SQ SCH (07:41)
[2019-12-25] MEDS: INSULIN ASPART (NovoLOG) 100 UNIT/ML VIAL SQ SCH ×2 (07:41→12:24)
[2019-12-25] MEDS: HEPARIN SODIUM,PORCINE 5,000 UNIT/ML 1 ML VIAL SQ SCH (07:41)
[2019-12-25] MEDS: metFORMIN 500 MG TAB PO SCH (07:42)
[2019-12-25] MEDS: SODIUM CHLORIDE 0.9% 1,000 ML IV SCH (07:42)
[2019-12-25] MEDS: NICOTINE 14MG/24HR PATCH TRANSDERM SCH (07:42)
[2019-12-25] MEDS: MULTIVITAMINS, THERA 1 EACH TAB PO SCH (07:42)
[2019-12-25] MEDS: GABAPENTIN 300 MG CAP PO SCH (07:42)
[2019-12-25] MEDS: ASPIRIN 325 MG TAB PO SCH (07:42)
[2019-12-25] MEDS: CITALOPRAM HYDROBROMIDE 20 MG TAB PO SCH (07:42)
[2019-12-25] MEDS: LORATADINE 10 MG TAB PO SCH (07:42)
[2019-12-25 07:48] VITALS: BP 132/75; PULSE 69
[2019-12-25] MEDS: VANCOMYCIN 1,500 MG in SODIUM CHLORIDE 0.9% 250 ML IVPB SCH (10:19)
[2019-12-25 11:57] LABS: Glucose,Whole Blood 264 mg/dL (75-99)
--- NOTE | 2019-12-26 08:43 | P.DS ---
Providers Date of admission: 12/21/19 15:06 Expected date of discharge: 12/26/19 Attending physician: Soila Melendrez MD Consults: 12/21/19 14:08 Consult Physician Stat Consulting Provider: Nirav Hall Consult Reason/Comments: facial cellulitis, mrsa Do you want consulting provider notified?: Yes 12/24/19 11:05 Consult Physician Stat Consulting Provider: Torsten Pierre Consult Reason/Comments: facial abscess Do you want consulting provider notified?: Yes Primary care physician: Ally Licona Hospital Course: Final diagnosis Acute left temporal cellulitis with facial cellulitis with significant periorbital swelling and possible MRSA Diabetes mellitus type 2 uncontrolled with hyperglycemia with no evidence of ketosis Hyponatremia Previous history of MRSA infection on the left neck Hyperlipidemia history of MRSA History of hysterectomy History of cataracts History of anxiety remote history of nicotine dependence Discharge disposition Patient is being discharged in a stable condition with guarded prognosis to home. Patient will follow-up with Dr. Licona upon discharge. Patient will also follow-up with surgery in the outpatient setting in 1 week. Patient will continue with a short course of oral antibiotics in the form of Bactrim DS for the next 10 days. Total time taken is 35 minutes. History of present illness This is an 64-year-old female who was recently admitted with left temporal infection also was found to have some minimal fluctuation in the temporal area and was being closely monitored. Infectious disease was following. Patient was treated with antibiotics in the form of IV vancomycin and will be transitioned to oral Bactrim DS twice daily for the next 10 days and then may discontinue. During hospitalization surgery evaluated the patient recommending to continue with antibiotics and close patient follow-up in the outpatient setting in 1 week. Currently no reports of chest pain, shortness of breath, or palpitations. Patient is afebrile. No reports of nausea or vomiting and patient is tolerating diet. On exam vital signs are stable. Temp is 98.2 F, pulse is 69, respirations are 16, blood pressure is 132/75, oxygen saturation is 98 % on room air. Cardio S1, S2 are muffled. Respiratory shows diminished breath sounds at the bases with no wheezing or rhonchi noted. Abdomen is soft and nontender. Nervous system shows no focal deficits. Please refer to medication reconciliation sheet for a list of medications. Patient Condition at Discharge: Good Plan - Discharge Summary Discharge Rx Participant: Yes New Discharge Prescriptions: Continue Insulin Glargine [Lantus] See Protocol SQ HS INSULIN ASPART (NovoLOG) [NovoLOG (formulary)] See Protocol SQ AC-TID sitaGLIPtin PHOS/metFORMIN HCL [Janumet 50-1,000 mg Tablet] 1 tab PO BID Naproxen [Naprosyn] 250 mg PO BID Insulin Glargine,Hum.rec.anlog [Toujeo Solostar] 30 units SQ HS Citalopram Hydrobromide [CeleXA] 20 mg PO DAILY Atorvastatin [Lipitor] 40 mg PO HS Omeprazole [PriLOSEC] 40 mg PO DAILY Multivitamins, Thera [Multivitamin (formulary)] 1 tab PO DAILY Gabapentin [Neurontin] 300 mg PO BID Cetirizine HCl [Zyrtec] 10 mg PO DAILY Aspirin EC [Ecotrin] 325 mg PO DAILY Sulfamethox-Tmp 800-160Mg [Bactrim DS 800-160 mg] 1 tab PO Q12HR 10 Days #20 tab Discharge Medication List Aspirin EC [Ecotrin] 325 mg PO DAILY 12/21/19 [History] Atorvastatin [Lipitor] 40 mg PO HS 12/21/19 [History] Cetirizine HCl [Zyrtec] 10 mg PO DAILY 12/21/19 [History] Citalopram Hydrobromide [CeleXA] 20 mg PO DAILY 12/21/19 [History] Gabapentin [Neurontin] 300 mg PO BID 12/21/19 [History] INSULIN ASPART (NovoLOG) [NovoLOG (formulary)] See Protocol SQ AC-TID 12/21/19 [History] Insulin Glargine [Lantus] See Protocol SQ HS 12/21/19 [History] Insulin Glargine,Hum.rec.anlog [Toujeo Solostar] 30 units SQ HS 12/21/19 [History] Multivitamins, Thera [Multivitamin (formulary)] 1 tab PO DAILY 12/21/19 [History] Naproxen [Naprosyn] 250 mg PO BID 12/21/19 [History] Omeprazole [PriLOSEC] 40 mg PO DAILY 12/21/19 [History] sitaGLIPtin PHOS/metFORMIN HCL [Janumet 50-1,000 mg Tablet] 1 tab PO BID 12/21/19 [History] Sulfamethox-Tmp 800-160Mg [Bactrim DS 800-160 mg] 1 tab PO Q12HR 10 Days #20 tab 12/25/19 [Rx] Follow up Appointment(s)/Referral(s): Ally Licona MD [Primary Care Provider] - 12/27/19 10:00 am Torsten Pierre MD [STAFF PHYSICIAN] - 01/01/20 3:00 pm Patient Instructions/Handouts: Orbital Cellulitis (DC) Activity/Diet/Wound Care/Special Instructions: Activity Limited until follow-up Follow-up with primary care provider upon discharge Continue with antibiotics for 10 days until finished Continue current diet Discharge Disposition: HOME SELF-CARE
[2019-12-26] MEDS ORDERED: VANCOMYCIN TROUGH DUE 1 EACH MISC MISCELLANE ONE (09:00)
== END 2019-12-25 13:02 | disposition home or self-care (01) | DRG 603 ==
LOC: EC 10:13 → 4SSUR 15:06
PROVIDERS: ADMIT Internal Medicine; ATTEND Internal Medicine
DX: L03.213 Periorbital cellulitis (principal); L02.01 Cutaneous abscess of face; E87.1 Hypo-osmolality and hyponatremia; L03.211 Cellulitis of face; E11.65 Type 2 diabetes mellitus with hyperglycemia; B95.62 Methicillin resistant Staphylococcus aureus infection as the cause of diseases classified elsewhere; E78.5 Hyperlipidemia, unspecified; I10 Essential (primary) hypertension; F17.290 Nicotine dependence, other tobacco product, uncomplicated; F41.9 Anxiety disorder, unspecified; Z79.1 Long term (current) use of non-steroidal anti-inflammatories (NSAID); Z79.82 Long term (current) use of aspirin; Z79.4 Long term (current) use of insulin; Z79.899 Other long term (current) drug therapy; Z86.14 Personal history of Methicillin resistant Staphylococcus aureus infection; Z90.710 Acquired absence of both cervix and uterus; Z98.42 Cataract extraction status, left eye; Z98.41 Cataract extraction status, right eye; Z82.5 Family history of asthma and other chronic lower respiratory diseases; Z82.49 Family history of ischemic heart disease and other diseases of the circulatory system
CPT/HCPCS: 36415; 70487; 80048; 80053; 80202; 81003; 83036; 83605; 85025; 87040; 87045; 87046; 87324; 93005; 96365; 96366; 96367; 96375; 99285

== ENCOUNTER → 2021-02-11 | Outpatient (CLI) | payer MEDICARE ==
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
== END | disposition home or self-care (01) ==
LOC: SLEEP 14:47
PROVIDERS: ATTEND Internal Medicine
DX: G47.33 Obstructive sleep apnea (adult) (pediatric) (principal); F32.9 Major depressive disorder, single episode, unspecified; E11.9 Type 2 diabetes mellitus without complications; E78.5 Hyperlipidemia, unspecified; K21.9 Gastro-esophageal reflux disease without esophagitis; Z90.710 Acquired absence of both cervix and uterus; Z98.42 Cataract extraction status, left eye; Z98.41 Cataract extraction status, right eye; J34.9 Unspecified disorder of nose and nasal sinuses
CPT/HCPCS: 99211

== ENCOUNTER → 2021-09-24 | Outpatient (CLI) | payer MEDICARE ==
[2021-09-24 19:05] LABS: Basophils # (A) 0.02 X 10*3/uL (0.00-0.10); Basophils % (A) 0.4 %; Eosinophils # (A) 0.08 X 10*3/uL (0.04-0.35); Eosinophils % (A) 1.7 %; HCT 34.3 % (37.2-46.3); HGB 11.1 g/dL (12.0-15.0); Lymphocytes # (A) 1.16 X 10*3/uL (0.90-5.00); Lymphocytes % (A) 25.2 %; MCH 28.4 pg (27.0-32.0); MCHC 32.4 g/dL (32.0-37.0); MCV 87.7 fL (80.0-97.0); Mean Platelet Volume 11.8 fL (9.5-12.2); Monocytes # (A) 0.46 X 10*3/uL (0.20-1.00); Neutrophils # (A) 2.87 X 10*3/uL (1.80-7.70); Neutrophils % (A) 62.3 %; Platelet Count 262 X 10*3/uL (140-440); RBC 3.91 X 10*6/uL (4.10-5.20); RDW 12.9 % (11.5-14.5); WBC 4.61 X 10*3/uL (4.50-10.00)
[2021-09-24 21:34] LABS: ALT 13 U/L (8-44); AST 13 U/L (13-35); African American GFR (CKD) 76.7 (60.0-200.0); Albumin 3.9 g/dL (3.8-4.9); Albumin/Globulin Ratio 1.39 (1.60-3.17); Alkaline Phosphatase 73 U/L (41-126); BUN/Creat Ratio 20.22 Ratio (12.00-20.00); Blood Urea Nitrogen 18.2 mg/dL (9.0-27.0); Calcium 9.5 mg/dL (8.7-10.3); Carbon Dioxide 26.9 mmol/L (20.0-27.5); Chloride 100 mmol/L (96-109); Chol/HDL Ratio 3.59 Ratio; Globulin 2.8 g/dL (1.6-3.3); Glucose 185 mg/dL (70-110); LDL Cholesterol,Calculated 103.4 mg/dL (0.0-131.0); Non-African American GFR(CKD) 66.2 (60.0-200.0); Potassium 4.9 mmol/L (3.5-5.5); Sodium 138 mmol/L (135-145); Total Protein 6.7 g/dL (6.2-8.2)
== END | disposition home or self-care (01) ==
LOC: LABWHC1 13:11
PROVIDERS: ATTEND Physician Assistant
DX: E11.42 Type 2 diabetes mellitus with diabetic polyneuropathy (principal); Z79.4 Long term (current) use of insulin; E78.2 Mixed hyperlipidemia
CPT/HCPCS: 36415; 80053; 80061; 83036; 84443; 85025

== ENCOUNTER → 2022-05-24 | Outpatient (CLI) | payer MEDICARE ==
--- NOTE | 2022-05-24 12:21 | US ---
EXAMINATION TYPE: US abdomen complete DATE OF EXAM: 05/24/2022 COMPARISON: NONE CLINICAL HISTORY: R19.7 DIARRHEA, R10.10 PAIN IN UPPER ABD. RUQ pain, diarrhea. TECHNIQUE: Multiple sonographic images of the abdomen are obtained. FINDINGS: EXAM MEASUREMENTS: Liver Length: 14.9 cm Gallbladder Wall: 0.21 cm CBD: 0.56 cm Spleen: 10.3 cm Right Kidney: 10.1 x 5.7 x 4.8 cm Left Kidney: 10.7 x 5.0 x 4.7 cm HOP GROWER NOTES: Exam is limited due to gas. Pancreas: Not well seen. Liver: Appears coarse. Indistinct, hypoechoic area seen adjacent to the gallbladder: 1.0 x 2.1 x 1.2 cm. ?Possible focal fa tty sparing. Gallbladder: Hyperechoic areas seen within the gallbladder that appear to be mobile. Evidence for sonographic Rene's sign: No CBD: Within normal limits.. Spleen: Appears wnl Right Kidney: No hydronephrosis or masses seen Left Kidney: Appearance of possible dilated lower collecting system, anechoic area: 1.9 x 1.6 x 1.6 c m. Upper IVC: Appears wnl Abd Aorta: Appears ectatic. Iliacs were obscured. IMPRESSION: 1. Emphysematous limited due to low gas. 2. Cholelithiasis
== END | disposition home or self-care (01) ==
LOC: RADUSWWP 09:45
PROVIDERS: ATTEND Family Medicine
DX: K80.20 Calculus of gallbladder without cholecystitis without obstruction (principal); J43.9 Emphysema, unspecified
CPT/HCPCS: 76700

== ENCOUNTER → 2022-06-14 | Outpatient (CLI) | payer MEDICARE ==
[2022-06-14 18:26] LABS: HCT 31.5 % (37.2-46.3); HGB 10.7 g/dL (12.0-15.0); MCH 29.4 pg (27.0-32.0); MCV 86.5 fL (80.0-97.0); Mean Platelet Volume 11.8 fL (9.5-12.2); NRBC Per 100 WBC 0 /100 WBCS (0.0-0.0); Platelet Count 261 X 10*3/uL (140-440); RBC 3.64 X 10*6/uL (4.10-5.20); WBC 5.61 X 10*3/uL (4.50-10.00)
[2022-06-14 19:18] LABS: African American GFR (CKD) 68.4 (60.0-200.0); Albumin 4.1 g/dL (3.8-4.9); Albumin/Globulin Ratio 1.71 (1.60-3.17); Anion Gap 10.7 mmol/L (10.00-18.00); BUN/Creat Ratio 18.9 Ratio (12.00-20.00); Blood Urea Nitrogen 18.6 mg/dL (9.0-27.0); Calcium 9.6 mg/dL (8.7-10.3); Carbon Dioxide 26.9 mmol/L (20.0-27.5); Globulin 2.4 g/dL (1.6-3.3); Potassium 5.6 mmol/L (3.5-5.5); T4, Free (Free Thyroxine) 0.99 ng/dL (0.800-1.800); Total Bilirubin 0.2 mg/dL (0.30-1.20); Total Protein 6.5 g/dL (6.2-8.2)
== END | disposition home or self-care (01) ==
LOC: LABWHC1 13:08
PROVIDERS: ATTEND Physician Assistant
DX: R41.3 Other amnesia (principal)
CPT/HCPCS: 36415; 80053; 82306; 82607; 84207; 84439; 84443; 84481; 85027

== ENCOUNTER → 2022-07-27 | Outpatient (CLI) | payer MEDICARE ==
[2022-07-27 14:18] LABS: Basophils # (A) 0.02 X 10*3/uL (0.00-0.10); Basophils % (A) 0.3 %; Eosinophils # (A) 0.09 X 10*3/uL (0.04-0.35); Eosinophils % (A) 1.5 %; HCT 32.5 % (37.2-46.3); HGB 11.1 g/dL (12.0-15.0); Immature Grans, Automated 0.3 %; Lymphocytes # (A) 1.84 X 10*3/uL (0.90-5.00); MCH 28.8 pg (27.0-32.0); MCHC 34.2 g/dL (32.0-37.0); MCV 84.4 fL (80.0-97.0); Mean Platelet Volume 11.8 fL (9.5-12.2); Monocytes # (A) 0.55 X 10*3/uL (0.20-1.00); NRBC Per 100 WBC 0 /100 WBCS (0.0-0.0); Neutrophils # (A) 3.61 X 10*3/uL (1.80-7.70); Neutrophils % (A) 58.9 %; Platelet Count 286 X 10*3/uL (140-440); RBC 3.85 X 10*6/uL (4.10-5.20); RDW 12.3 % (11.5-14.5); WBC 6.13 X 10*3/uL (4.50-10.00)
[2022-07-27 14:39] LABS: ALT 19 U/L (8-44); AST 20 U/L (13-35); African American GFR (CKD) 61.1 (60.0-200.0); Albumin/Globulin Ratio 1.68 (1.60-3.17); Alkaline Phosphatase 75 U/L (41-126); BUN/Creat Ratio 15.93 Ratio (12.00-20.00); Blood Urea Nitrogen 17.2 mg/dL (9.0-27.0); Calcium 9.4 mg/dL (8.7-10.3); Chloride 102 mmol/L (96-109); Chol/HDL Ratio 3.07 Ratio; Globulin 2.4 g/dL (1.6-3.3); Glucose 183 mg/dL (70-110); LDL Cholesterol,Calculated 81.6 mg/dL (0.0-131.0); Non-African American GFR(CKD) 52.7 (60.0-200.0); Potassium 5.1 mmol/L (3.5-5.5); Sodium 142 mmol/L (135-145); Total Protein 6.4 g/dL (6.2-8.2)
== END | disposition home or self-care (01) ==
LOC: LABWHC1 09:26
PROVIDERS: ATTEND Physician Assistant
DX: E11.42 Type 2 diabetes mellitus with diabetic polyneuropathy (principal); Z79.4 Long term (current) use of insulin; E78.2 Mixed hyperlipidemia
CPT/HCPCS: 36415; 80053; 80061; 82043; 82570; 83036; 85025

== ENCOUNTER 2022-10-15 08:56 | Day surgery (SDC) | payer MEDICARE ==
[2022-10-12 15:36] VITALS: BMI 29.7
[~2022-10-15 08:56] MED LIST: LACTATED RINGERS 1,000 ML IV SCH
[2022-10-15 09:50] LABS: Glucose,Whole Blood 275 mg/dL (70-110)
[2022-10-15 09:52] VITALS: TEMP 97.7
[2022-10-15] MEDS ORDERED: INSULIN ASPART (NovoLOG) 100 UNIT/ML VIAL SQ ONE (09:59)
[2022-10-15] MEDS ORDERED: PROPOFOL 10 MG/ML 20 ML VIAL IV ONE (10:59)
--- NOTE | 2022-10-15 11:21 | P.PCN ---
Date of Procedure: 10/15/22 Procedure(s) Performed: BRIEF HISTORY: Patient is a 67-year-old pleasant white female scheduled for an elective colonoscopy as a part of evaluation of intermittent rectal bleeding for the last few months duration. PROCEDURE PERFORMED: Colonoscopy with snare polypectomy. PREOPERATIVE DIAGNOSIS: Intermittent rectal bleeding. IV sedation per Anesthesia. PROCEDURE: After informed consent was obtained, the patient, was brought into the endoscopy unit. IV sedation was administered by Anesthesia under continuous monitoring. Digital rectal examination was normal. Initially the Olympus CF-160 flexible video colonoscope was then inserted in the rectum, gradually advanced into the cecum without any difficulty. Careful examination was performed as the scope was gradually being withdrawn. Ileocecal valve and the appendiceal orifice were visualized and appeared normal. Prep was poor and several areas of the colon.. Mucosa of the cecum, ascending colon, transverse colon, descending colon, sigmoid colon, appeared normal. In the rectosigmoid at 20 cm from the anal verge there was a 2 cm pedunculated polyp was removed by snare polypectomy. Mucosa of the rectum appeared normal. Retroflexion was performed in the rectum and no lesions were seen. The patient tolerated the procedure well. IMPRESSION: 2 cm pedunculated rectal sigmoid polyp status post polypectomy Rest of the colon appeared normal Poor prep in several areas of the colon RECOMMENDATIONS: Findings of this examination were discussed with the patient well as her family. She was advised to follow with the biopsy results. If the biopsy report adenoma she can have a repeat colonoscopy in 3 years..
[2022-10-15 11:30] LABS: Glucose,Whole Blood 242 mg/dL (70-110)
[2022-10-15 11:40] VITALS: BP 146/72; PULSE 76; RESP 18
== END 2022-10-15 12:00 | disposition home or self-care (01) ==
LOC: ORWHC2ENDO 08:56
PROVIDERS: ATTEND Internal Medicine Gastroenterology
DX: D12.5 Benign neoplasm of sigmoid colon (principal); I10 Essential (primary) hypertension; E78.5 Hyperlipidemia, unspecified; E11.9 Type 2 diabetes mellitus without complications; Z79.4 Long term (current) use of insulin; Z79.01 Long term (current) use of anticoagulants; Z79.02 Long term (current) use of antithrombotics/antiplatelets; Z79.1 Long term (current) use of non-steroidal anti-inflammatories (NSAID); Z79.891 Long term (current) use of opiate analgesic; Z79.899 Other long term (current) drug therapy; Z98.890 Other specified postprocedural states
CPT/HCPCS: 88305; 45385; J2704